=== PATIENT | male | born 1965 | race Caucasian/White ===

== ENCOUNTER 2018-10-31 22:25 | Observation (INO) | payer OTHER ==
[~2018-10-31] VITALS: Ht 172.7 cm; Wt 75.0 kg
[2018-10-31 22:57] LABS: BASOPHILS 0.4 % (0-2); EOSINOPHILS 4.1 % (0-7); HEMATOCRIT 44.5 % (42.0-54.0); HEMOGLOBIN 15.7 g/dL (13.5-17.5); IMMATURE GRANULOCYTES 0.1 % (0-5); MCH 30.4 pg (26.0-34.0); MCHC 35.3 g/dL (31.0-37.0); MCV 86.1 fL (80.0-100.0); MEAN PLATELET VOLUME 11.1 fL (7.4-10.4); MONOCYTES 7.4 % (2-11); PLATELET COUNT 203 10x3/uL (130-400); RBC 5.17 10x6/uL (4.20-6.10); RDW 12.5 % (11.5-14.5); WBC 7.3 10x3/uL (4.8-10.8)
[2018-10-31 23:21] LABS: APTT 26.9 SECONDS (22.8-39.4); INR 1.02 (0.85-1.17); PROTIME 12.9 SECONDS (11.6-15.0)
[2018-10-31 23:22] LABS: ALKALINE PHOSPHATASE 81 U/L (46-116); ALT (SGPT) 30 U/L (10-68); BILIRUBIN - TOTAL 0.67 mg/dL (0.2-1.3); CALC OSMOLALITY 277 mosm/kg (275-300); CARBON DIOXIDE 30.5 mmol/L (21.0-32.0); CHLORIDE - SERUM 100 mmol/L (98-107); CREATININE - SERUM 0.9 mg/dL (0.6-1.3); GLUCOSE 102 mg/dL (74-106); POTASSIUM - SERUM 3.9 mmol/L (3.5-5.1); PROTEIN - SERUM 7.9 g/dL (6.4-8.2); SODIUM 140 mmol/L (136-145); UREA NITROGEN 10 mg/dL (7-18); eGFR NON AFRICAN AMERICAN > 90 mL/min (90-120)
[2018-11-01] VITALS (8 sets, daily range): BP systolic 113–138; BP diastolic 67–80; Ht 172.7 cm; Wt 75.0 kg
[2018-11-01 01:19] LABS: CKMB 1.7 U/L (0.0-3.6); CREATINE KINASE 174 UL (21-232); TROPONIN-I < 0.017 ng/mL (0.000-0.060)
[2018-11-01] MEDS ORDERED: AFRIN15 ML NASAL (02:11)
[2018-11-01] MEDS ORDERED: BENADRYL25 MG PO (02:12)
[2018-11-01 07:01] LABS: CKMB 0.9 U/L (0.0-3.6); CREATINE KINASE 130 UL (21-232); TROPONIN-I < 0.017 ng/mL (0.000-0.060)
[2018-11-01 12:17] LABS: CKMB 0.9 U/L (0.0-3.6); CREATINE KINASE 118 UL (21-232); TROPONIN-I < 0.017 ng/mL (0.000-0.060)
[2018-11-01] MEDS ORDERED: PROTONIX40 MG PO (13:22)
== END 2018-11-01 17:39 | disposition home or self-care (01) ==
LOC: D.ER 22:25 → EDBD 22:25 → D.M3 11-01 01:31 → OBSVTIME 11-01 01:31 → D.ER 11-01 01:41 → D.M3 11-01 17:39
PROVIDERS: Family Medicine
DX: T18.128A Food in esophagus causing other injury, initial encounter (principal); K21.9 Gastro-esophageal reflux disease without esophagitis